=== PATIENT | male | born 1980 | race Caucasian/White ===

== ENCOUNTER 2018-08-13 23:06 | Emergency (ER) | payer SELFPAY | END 2018-08-14 00:14 | disposition left against medical advice (07) | LOC: ER 23:06 | DX: Z53.21 Procedure and treatment not carried out due to patient leaving prior to being seen by health care provider (principal) ==

== ENCOUNTER 2023-01-08 15:28 | Emergency (ER) | payer SELFPAY ==
[~2023-01-08] VITALS: Ht 172.7 cm; Wt 75.0 kg
[2023-01-08 15:37] VITALS: O2SAT 100
[2023-01-08] MEDS ORDERED: KETOROLAC 60MG/2ML VIAL IM ONE (17:00)
[2023-01-08] MEDS ORDERED: IBUP-2029 MT (18:20)
[2023-01-08 19:28] VITALS: BP 124/78; PULSE 84; RESP 20; TEMP 97.9
== END 2023-01-08 19:30 | disposition home or self-care (01) ==
LOC: ER 16:50
DX: S00.83XA Contusion of other part of head, initial encounter (principal); S49.92XA Unspecified injury of left shoulder and upper arm, initial encounter; Y08.89XA Assault by other specified means, initial encounter; Y93.89 Activity, other specified; Y92.89 Other specified places as the place of occurrence of the external cause; Y99.8 Other external cause status
CPT/HCPCS: 99285; 70450; 71101; 73030; 96372; 70480; J1885